=== PATIENT | male | born 1960 | race Caucasian/White ===

== ENCOUNTER → 2016-10-31 | Outpatient (CLI) | payer BC ==
--- NOTE | 2016-10-31 17:04 | DI ---
Indication: ITS.REASON: M79.642 PAIN IN LEFT HAND PROCEDURE: HAND BILATERAL 3 VIEW: Encounter: Initial Comparison: None Findings: Right hand: No acute fracture or dislocation seen. There is joint space narrowing in the third metacarpophalangeal joint with hooked osteophytes arising from the metacarpal head. Degenerative change also seen in the second metacarpophalangeal joint with subchondral cysts. The remaining joint spaces are maintained. Calcification or small foreign body seen in the thenar soft tissues. Left hand: No acute fracture or dislocation. Degenerative change in the third metacarpophalangeal joint with hooked osteophytes arising from the third and fourth metacarpal heads. The remaining joint spaces are maintained. No osseous erosions. 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 Recommend clinical and laboratory correlation. 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 Recommend clinical and laboratory correlation. .
== END ==
LOC: IMA 16:35
PROVIDERS: ATTEND Family Medicine
DX: M79.642 Pain in left hand (principal); M79.641 Pain in right hand; M12.842 Other specific arthropathies, not elsewhere classified, left hand; M12.841 Other specific arthropathies, not elsewhere classified, right hand